=== PATIENT | female | born 1950 | race Caucasian/White ===

== ENCOUNTER 2021-09-01 12:11 | Inpatient (IN) | payer MEDICARE, OTHER ==
[~2021-09-01] VITALS: Ht 172.7 cm; Wt 108.9 kg
[2021-09-01 12:38] LABS: RED BLOOD COUNT 4.42 M/UL (4.00-5.10)
[2021-09-01 12:46] LABS: HEMOGLOBIN 11.3 gm/dl (12.3-15.3); WHITE BLOOD COUNT 24.2 K/UL (4.5-11.0)
[2021-09-01 14:23] LABS: BUN/CREATININE RATIO 17 (0-10)
[2021-09-01] MEDS ORDERED: GABAPENTIN400 MG PO (22:39)
[2021-09-01] MEDS ORDERED: MELOXICAM7.5 MG PO (22:39)
[2021-09-01] MEDS ORDERED: OXYMORPHONE HCL15 MG PO (22:40)
[2021-09-01] MEDS ORDERED: OXYCODONE HCL10 MG PO (22:40)
[2021-09-01] MEDS ORDERED: ZOLOFT50 MG PO (22:42)
[2021-09-01] MEDS ORDERED: KLONOPIN0.5 MG PO (22:42)
[2021-09-01] MEDS ORDERED: ATENOLOL100 MG PO (22:43)
[2021-09-01] MEDS ORDERED: VITAMIN D350 MCG PO (22:45)
[2021-09-01] MEDS ORDERED: AMLODIPINE BESY10 MG PO (22:45)
[2021-09-01] MEDS ORDERED: GLUCOPHAGE 500500 MG PO (22:46)
[2021-09-01] MEDS ORDERED: ZETIA10 MG PO (22:46)
[2021-09-01] MEDS ORDERED: OMEPRAZOLE20 M1 PO (22:46)
[2021-09-01] MEDS ORDERED: ZOCOR 40 MG TAB40 MG PO (22:47)
[2021-09-01] MEDS ORDERED: VENTOLIN/PROVE0.5 ML INH (22:48)
[2021-09-01] MEDS ORDERED: BEVESPI AEROS10.7 GM INH (22:48)
[2021-09-02 00:58] LABS: ACINETOBACTER BAUMANNII Not Detected (Negative); CANDIDA ALBICANS Not Detected (Negative); CANDIDA KRUSEI Not Detected (Negative); CANDIDA TROPICALIS Not Detected (Negative); ENTEROCOCCUS Not Detected (Negative); HAEMOPHILUS INFLUENZAE Not Detected (Negative); KLEBSIELLA OXYTOCA Not Detected (Negative); KLEBSIELLA PNEUMONIAE Not Detected (Negative); KPC-CARBAPENEM-RESISTANCE GENE Not Detected (Negative); PROTEUS Not Detected (Negative); PSEUDOMONAS AERUGINOSA Not Detected (Negative); SERRATIA MARCESANS Not Detected (Negative); STAPHYLOCOCCUS Not Detected (Negative); STAPHYLOCOCCUS AUREUS Not Detected (Negative); STREP AGALACTIAE (GROUP B) Not Detected (Negative); STREP PYOGENES (GROUP A) Not Detected (Negative); STREPTOCOCCUS Not Detected (Negative); mecA (METHICILLIN RESIST GENE Not Detected (Negative); vanA/B (VANCOMYCIN RESIST GENE Not Detected (Negative)
[2021-09-02 02:29] LABS: ESCHERICHIA COLI DETECTED (Negative)
[2021-09-02 05:18] LABS: HEMOGLOBIN 9.7 gm/dl (12.3-15.3)
[2021-09-02 05:19] LABS: RED BLOOD COUNT 3.73 M/UL (4.00-5.10); WHITE BLOOD COUNT 10.2 K/UL (4.5-11.0)
[2021-09-02 07:02] LABS: BUN/CREATININE RATIO 23 (0-10)
[2021-09-03 05:42] LABS: HEMOGLOBIN 10.3 gm/dl (12.3-15.3); RED BLOOD COUNT 4.04 M/UL (4.00-5.10)
[2021-09-03 05:45] LABS: WHITE BLOOD COUNT 12.8 K/UL (4.5-11.0)
[2021-09-03 06:08] LABS: BUN/CREATININE RATIO 19 (0-10)
[2021-09-04 06:53] LABS: HEMOGLOBIN 9.5 gm/dl (12.3-15.3); RED BLOOD COUNT 3.77 M/UL (4.00-5.10); WHITE BLOOD COUNT 7.3 K/UL (4.5-11.0)
[2021-09-04 07:35] LABS: BUN/CREATININE RATIO 25 (0-10)
--- NOTE | 2021-09-05 00:14 | NUR ---
PATIENT IS NPO AFTER MIDNIGHT DUE TO ABDOMINAL SCAN ON 09/05/21
[2021-09-05 06:27] LABS: HEMOGLOBIN 11.3 gm/dl (12.3-15.3); WHITE BLOOD COUNT 7.1 K/UL (4.5-11.0)
[2021-09-05 06:30] LABS: RED BLOOD COUNT 4.45 M/UL (4.00-5.10)
[2021-09-05 07:22] LABS: BUN/CREATININE RATIO 26 (0-10)
[2021-09-05 17:11] LABS: ORGANISM ID Not indicated. (.); SPECIMEN SOURCE Urine (.); STREPTOCOCCUS PNEUMONIAE AG Negative (Negative)
[2021-09-06 06:16] LABS: HEMOGLOBIN 10.6 gm/dl (12.3-15.3); RED BLOOD COUNT 4.24 M/UL (4.00-5.10); WHITE BLOOD COUNT 7.6 K/UL (4.5-11.0)
[2021-09-06 06:46] LABS: BUN/CREATININE RATIO 24 (0-10)
[2021-09-06 07:11] LABS: HBSAG SCREEN Negative (Negative); HEP A AB, IGM Negative (Negative); HEP B CORE AB, IGM Negative (Negative); HEP C VIRUS AB <0.1 (0.0-0.9)
--- NOTE | 2021-09-06 09:03 | NUR ---
patient off the floor at this time for hida scan
[2021-09-06 12:43] LABS: BUN/CREATININE RATIO 28 (0-10)
[2021-09-06 13:26] LABS: ADENOVIRUS F 40/41 Not Detected (Negative); ASTROVIRUS Not Detected (Negative); CAMPYLOBACTER Not Detected (Negative); CLOSTRIDIUM DIFFICILE TOX A/B Not Detected (Negative); CRYPTOSPORIDIUM Not Detected (Negative); E.COLI 0157 Not Detected (Negative); ENTAMOEBA HISTOLYTICA Not Detected (Negative); ENTEROAGGREGATIVE E.COLI (EAEC Not Detected (Negative); ENTEROPATHOGENIC E.COLI (EPEC) Not Detected (Negative); ENTEROTOXIGENIC E.COLI (ETEC) Not Detected (Negative); GIARDIA LAMBLIA Not Detected (Negative); NOROVIRUS GI/GII Not Detected (Negative); PLESIOMONAS SHIGELLOIDES Not Detected (Negative); ROTOVIRUS A Not Detected (Negative); SALMONELLA Not Detected (Negative); SAPOVIRUS Not Detected (Negative); SHIG/ENTEROINVAS.ECOLI (EIEC) Not Detected (Negative); SHIGA-LIK TOX.PRO.E.COLI (STEC Not Detected (Negative); VIBRIO Not Detected (Negative); VIBRIO CHOLERAE Not Detected (Negative); YERSINIA ENTEROCOLITICA Not Detected (Negative)
[2021-09-07 06:57] LABS: HEMOGLOBIN 11.2 gm/dl (12.3-15.3); RED BLOOD COUNT 4.46 M/UL (4.00-5.10); WHITE BLOOD COUNT 9.1 K/UL (4.5-11.0)
[2021-09-07 08:14] LABS: BUN/CREATININE RATIO 32 (0-10)
[2021-09-08 07:50] LABS: HEMOGLOBIN 10.4 gm/dl (12.3-15.3); RED BLOOD COUNT 4.23 M/UL (4.00-5.10)
[2021-09-08 08:45] LABS: BUN/CREATININE RATIO 28 (0-10)
== END 2021-09-08 18:39 | disposition home health service (06) | DRG 871 ==
LOC: ER1 12:11 → M/S 13:43 → CCU 13:43 → CDU 13:43 → CCU 20:34 → M/S 09-02 14:47
PROVIDERS: Emergency Medicine; Internal Medicine; Physician Assistant Medical; ADMIT Internal Medicine
PROC: 5A09457 Assistance with Respiratory Ventilation, 24-96 Consecutive Hours, Continuous Positive Airway Pressure (ICD-10-PCS; principal; 2021-09-01)
PROC: 05HM33Z Insertion of Infusion Device into Right Internal Jugular Vein, Percutaneous Approach (ICD-10-PCS; 2021-09-01)
DX: A41.51 Sepsis due to Escherichia coli [E. coli] (principal); J96.02 Acute respiratory failure with hypercapnia; J96.01 Acute respiratory failure with hypoxia; G93.41 Metabolic encephalopathy; R65.21 Severe sepsis with septic shock; J69.0 Pneumonitis due to inhalation of food and vomit; J44.1 Chronic obstructive pulmonary disease with (acute) exacerbation; N30.00 Acute cystitis without hematuria; K80.20 Calculus of gallbladder without cholecystitis without obstruction; T40.601A Poisoning by unspecified narcotics, accidental (unintentional), initial encounter; G89.29 Other chronic pain; R94.5 Abnormal results of liver function studies; F32.A Depression, unspecified; I10 Essential (primary) hypertension; F41.1 Generalized anxiety disorder; E11.9 Type 2 diabetes mellitus without complications; K21.9 Gastro-esophageal reflux disease without esophagitis; E78.5 Hyperlipidemia, unspecified; Z20.822 Contact with and (suspected) exposure to COVID-19; F17.200 Nicotine dependence, unspecified, uncomplicated; Z79.899 Other long term (current) drug therapy
CPT/HCPCS: 36415; 36556; 36600; 51702; 70450; 71045; 76705; 78227; 80048; 80053; 80074; 80202; 80307; 81001; 82140; 82533; 82550; 82553; 82803; 82962; 83036; 83605; 83735; 83874; 83880; 84132; 84484; 85025; 85027; 85610; 85730; 87040; 87070; 87077; 87081; 87086; 87150; 87186; 87205; 87278; 87507; 87899; 93005; 94640; 94660; 94664; 94760; 94762; 96374; 96375; 97162; 97166; 97530-GP-CQ; 99285; A9537; C1751; C9113; J1650; J1720; J2185; J2310; J2543; J3370; J3475; J3480; J7030; J7050; J7070; U0002

== ENCOUNTER → 2021-11-27 | Outpatient (CLI) | payer MEDICARE, OTHER ==
[~2021-11-27] MED LIST: AMLODIPINE BESY10 MG PO; ATENOLOL100 MG PO; BEVESPI AEROS10.7 GM INH; GABAPENTIN400 MG PO; GLUCOPHAGE 500500 MG PO; KLONOPIN0.5 MG PO; MELOXICAM7.5 MG PO; OMEPRAZOLE20 M1 PO; OXYCODONE HCL10 MG PO; OXYMORPHONE HCL15 MG PO; VENTOLIN/PROVE0.5 ML INH; VITAMIN D350 MCG PO; ZETIA10 MG PO; ZOCOR 40 MG TAB40 MG PO; ZOLOFT50 MG PO
== END ==
LOC: SLEEP 09:15
DX: J41.0 Simple chronic bronchitis (principal); R06.83 Snoring
CPT/HCPCS: 95810